=== PATIENT | female | born 1970 | race Caucasian/White ===

== ENCOUNTER → 2023-11-06 13:36 | Outpatient (REF) | payer BC, SELFPAY | LOC: WDC 13:36 | PROVIDERS: ATTENDING PHYSICIAN Family Medicine | DX: Z12.31 Encounter for screening mammogram for malignant neoplasm of breast (principal) | CPT/HCPCS: 77063; 77067 ==

== ENCOUNTER → 2023-11-19 08:44 | Outpatient (REF) | payer BC, SELFPAY | LOC: WDC 08:44 | PROVIDERS: ATTENDING PHYSICIAN Family Medicine | DX: R92.8 Other abnormal and inconclusive findings on diagnostic imaging of breast (principal) | CPT/HCPCS: 76642 ==

== ENCOUNTER → 2024-11-10 08:01 | Outpatient (REF) | payer BC, SELFPAY | LOC: WDC 08:01 | PROVIDERS: ATTENDING PHYSICIAN Family Medicine | DX: Z12.31 Encounter for screening mammogram for malignant neoplasm of breast (principal) | CPT/HCPCS: 77063; 77067 ==

== ENCOUNTER 2025-01-03 07:38 | Emergency (ER) | payer BC, SELFPAY ==
[2025-01-03 08:05] VITALS: BP 139/85
[2025-01-03 08:39] LABS: Urine Character Clear (Clear)
--- NOTE | 2025-01-03 09:05 | ED.GENMED ---
History of Present Illness
General
Chief Complaint: Chest Pain
Source: patient
Time Seen by Provider: 01/03/25 08:47
History of Present Illness
History of Present Illness:
This patient is a very pleasant 54-year-old female presents emergency department after returning from a trip to [facility]. She got home at approximately 11 PM last night. While she was in [facility], she did a lot of walking including hills. At one
point while doing the hills she said she could feel 'heartbeat in my head', and needed to stop to feel better. Friday morning she noticed that she had slight bilateral feet swelling. Yesterday she noted that the swelling was worse and actually
tried to purchase compression socks before the flight but was unable to find any. This morning she awoke and noted on the way to work that she was belching a lot. She also noted that her fingers felt tingly and for about a minute she had
discomfort in the lower sternal area. When she arrived at work, she had a loose bowel movement without blood. She notes that she feels slightly dizzy when she walks. It is difficult to describe but when she takes a deep breath she does not feel
pain but is just not right. She overall she just does not feel like her normal self. She also notes a rash to bilateral shins right greater than left that developed a day or 2 ago. She denies fever, chills, nausea, vomiting, anorexia, or other
complaints. No personal history of DVT or CAD.
Past History
Past History
ED Past Medical History: HTN, Hypercholesterolemia and Other (ADD, kidney stones,)
ED Past Surgical History: , Gynecological, Urological and Other (Eye surgery as a child, sinus surgery)
Social History
Tobacco: Non-smoker
Alcohol: Occasional
Drug: None
Personal:
Living: with family
Employment: Employed
Phy Exam
Physical Exam
Physical Exam:
GENERAL: Alert , in no apparent distress, overall well-appearing and nontoxic
EYE: pupils equal and reactive
NECK: Supple, no significant adenopathy.
ENT: o/p clr, mmm.
CARDIAC: Regular rate and rhythm, tachycardic.
LUNGS: Clear breath sounds bilaterally, no acute respiratory distress, no wheezes/rales/rhonchi
ABDOMEN: Soft, without focal tenderness, no r/g, no cvat
NEUROLOGICAL: Alert and oriented, no focal neuro deficits
SKIN: Warm and dry, skin intact.
MUSCULOSKELETAL: sl symettrical le edema, well perfused. Nonspec maculopap rash noted ant asp tib/fib R>L without fluctuance/crepitus/streaking/blistering
PSYCH: Normal and appropriate interaction.
Scores
Heart Score for Chest Pain Patients
STEMI patient?: Not applicable
Course
Orders/Labs/Results
Orders:
Orders
01/03/25 08:03
EKG [Electrocardiogram (*1)] Urgent
Reason for Study: Chest Pain
EKG- Treatment ONCE
01/03/25 08:21
Urinalysis Reflex To Culture Urgent
Date Specimen was Collected: 01/03/25
Time Specimen was Collected: 08:13
01/03/25 09:04
CT Chest PE Study Urgent
Comment:
Reason For Exam: recent flight, sob
Cardiac Monitoring- Treatment ONCE
Pulse Ox/cont/shift [RESP] Stat
Quantity: 1
01/03/25 09:35
Complete Blood Count/No Diff Urgent
Comprehensive Metabolic Panel Urgent
NT-proBNP Urgent
Troponin I Urgent
01/03/25 12:43
Troponin I Urgent
Abnormal Lab Results
01/03/25
09:35
RBC 3.61 L 10^6/uL
(4.20-5.40)
Hgb 11.2 L g/dL
(12.0-16.0)
Hct 33.6 L %
(37.0-47.0)
Chloride 109 H mmol/L
(98-107)
AST 38 H U/L
(14-36)
ALT 42 H U/L
(0-35)
01/03/25 09:35
01/03/25 09:35
Vital Signs
Initial and Last Documented VS:
Initial Vital Signs
Temp Pulse Resp BP Pulse Ox
97.8 F 82 18 139/85 98
01/03/25 08:05 01/03/25 08:05 01/03/25 08:05 01/03/25 08:05 01/03/25 08:05
Last Documented Vital Signs
Temp Pulse Resp BP Pulse Ox
97.8 F 78 26 148/81 98
01/03/25 08:05 01/03/25 14:00 01/03/25 14:00 01/03/25 14:00 01/03/25 14:00
*Pulse Oximetry
SaO2: 98
Oxygen Mode of Delivery: Room air
Patient hypoxic: no
*Critical Care Note
Total Time (30-74mins, 75-104mins- exclusive of procedures): Not Applicable
Update Note
Update Note:
Patient presents to the Emergency Department with overall not feeling well, leg swelling, etc.
Number and Complexity of Problems Addressed at the Encounter
� Chronic conditions affecting care:
� Acute Exacerbation and/or Progression of Chronic Illness:
� Differential Diagnosis includes: But not limited to PE, heart failure, ACS, anemia, electrolyte disorder, etc. etc.
Amount and/or Complexity of Data to be Reviewed and Analyzed
� I performed an independent evaluation of and my interpretation is:
EKG:read by me nsr nl rate no acute ischemia
CT:No CT evidence for pulmonary embolism. No CT evidence for right heart strain.
2. Subsegmental atelectasis/hypoventilatory changes within the posterior lower lobes. No focal airspace consolidation.
3. Couple of small nodules along the inferior right upper lobe measuring up to 4.4 mm. Patient referred to the pulmonary nodule advisory Board for appropriate follow-up.
4. Several scattered hepatic cysts.
5. Additional findings above.
Xrays:
Laboratory Studies: Nonspecific mild anemia and transaminitis otherwise NAD
Other:
� Review of other/old records reveals:
� Clinical information was obtained by an independent historian:
� Prescriptions/Medications Considered but not given:
� Further testing considered but not performed:
Risk of Complications and/or Morbidity or Mortality of Patient Management
� Social determinants of health affecting care:
� Discussion with other providers (PCP, Hospitalists, Consultants, etc):
� Escalation of care including admission/observation vs risk of discharge considered:Troponin times two wnl...w/u otherwise unremkarable. pt given copy and verbally advised re:CT findings and need for f/u concerning. D/w pt
import of f/u and reaosns to rted. Remains stable.
ED Attending Note
-
Portions of this chart may have been created with voice recognition software.� Occasional wrong word or��sound alike� substitutions may have occurred due to the inherent limitations of voice recognition software.
Discharge Plan
Departure
Patient Disposition: Home (Routine Discharge)
Date of Disposition: 01/03/25
Time of Disposition: 13:38
Patient with high blood pressure during this ER visit?: Yes
Condition: Good
Discharge Problem:
Chest pain
Instructions: Chest Pain PCP Follow Up, BLOOD PRESSURE
Referrals:
Francisco Morris MD [Family Provider, Family Practice] - Next open appointment
Activity Restrictions/Additional Instructions:
IF YOU DEVELOP TROUBLE BREATHING, FEVER, VOMITING, RECURRENT/NEW CHEST PAIN, SWELLING, OR OTHER WORRISOME SIGNS, GO TO THE ER IMMEDIATELy!
Interventions
Interventions:
*Risk Screen - Suicide Last Done: 01/03/25 08:05
*General Assessment Last Done: 01/03/25 09:36
*Neglect/Abuse Screening Last Done: 01/03/25 08:05
*ED- Fall Risk Assessment Last Done: 01/03/25 09:36
*ED COVID-19 Vaccine History Last Done: 01/03/25 08:05
*Nursing Disposition Last Done: 01/03/25 14:12
ED- Cardiac Assessment Last Done: 01/03/25 10:00
ED- Neurological Assessment Last Done: 01/03/25 10:00
Discharge Date and Time
Discharge Date/Time: 01/03/25 14:12
Print Language: FRISIAN
[2025-01-03 09:22] VITALS: BMI 39.6
[2025-01-03 09:46] LABS: Hematocrit 33.6 % (37.0-47.0); Hemoglobin 11.2 g/dL (12.0-16.0); Mean Corp Hgb Conc. 33.3 g/dL (33.0-37.0); Mean Corpuscular Volume 93.1 fL (81.0-99.0); Platelet Count 234 10^3/uL (130-400); Red Cell Dist. Width 13.2 % (11.5-14.5)
[2025-01-03 10:09] LABS: ALT (SGPT) 42 U/L (0-35); AST (SGOT) 38 U/L (14-36); Albumin 4.4 g/dl (3.5-5.0); Alkaline Phosphatase 69 U/L (38-126); Blood Urea Nitrogen 13 mg/dl (7-17); Calcium 9.2 mg/dl (8.4-10.2); Carbon Dioxide 24 mmol/L (22-30); Chloride 109 mmol/L (98-107); Estimated Creatinine Clearance > 125 ml/min; Glucose 99 mg/dl (70-99); Potassium 4.1 mmol/L (3.5-5.1); Sodium 137 mmol/L (135-145); Total Protein 6.8 g/dl (6.3-8.2); Troponin I < 0.012 ng/ml; eGFR > 60.00
[2025-01-03 12:46] VITALS: BP 158/79
[2025-01-03 13:00] VITALS: BP 150/75
[2025-01-03 13:28] LABS: Troponin I < 0.012 ng/ml
[2025-01-03 14:00] VITALS: BP 148/81
== END 2025-01-03 14:12 | disposition home or self-care (01) ==
LOC: EMR 07:38
PROVIDERS: Student in an Organized Health Care Education/Training Program; EMERGENCY PHYSICIAN Emergency Medicine; FAMILY PHYSICIAN Family Medicine
DX: R07.89 Other chest pain (principal); M79.89 Other specified soft tissue disorders; R20.2 Paresthesia of skin; R19.7 Diarrhea, unspecified; R42 Dizziness and giddiness; R21 Rash and other nonspecific skin eruption; J98.11 Atelectasis; R91.8 Other nonspecific abnormal finding of lung field; K76.89 Other specified diseases of liver; I10 Essential (primary) hypertension; E78.00 Pure hypercholesterolemia, unspecified; F90.9 Attention-deficit hyperactivity disorder, unspecified type; Z87.442 Personal history of urinary calculi
CPT/HCPCS: 99284; 71275; 80053; 81003; 83880; 84484; 85027; 93005; Q9967